=== PATIENT | female | born 1935 | race Caucasian/White ===

== ENCOUNTER 2018-03-07 13:19 | Emergency (ER) | payer MEDICARE ==
--- NOTE | 2018-03-07 14:32 | UC ---
Knee Pain HPI - HPI Summary HPI Summary: 82 yo female with right medial knee pain x 3 days knee buckled Had been doing a lot of work around the house - History of Current Complaint Chief Complaint: UCLowerExtremity Stated Complaint: LEG PAIN Time Seen by Provider: 03/07/18 14:18 Pain Intensity: 4 - Allergies/Home Medications Allergies/Adverse Reactions: Allergies Allergy/AdvReac Type Severity Reaction Status Date / Time No Known Allergies Allergy Verified 03/07/18 13:52 Home Medications: Home Medications Alendronate Sodium 70 mg PO WEEKLY 03/07/18 [History Confirmed 03/07/18] Atorvastatin* [Lipitor*] 40 mg PO QPM 03/07/18 [History Confirmed 03/07/18] Bisoprolol Fumarate 10 mg PO DAILY 03/07/18 [History Confirmed 03/07/18] Lisinopril TAB* [Prinivil TAB*] 20 mg PO DAILY 03/07/18 [History Confirmed 03/07] Spironolactone TAB* [Aldactone TAB*] 25 mg PO DAILY 03/07/18 [History Confirmed 03/07/18] Torsemide TAB* [Demadex*] 10 mg PO DAILY 03/07/18 [History Confirmed 03/07/18] Warfarin TAB(*) [Coumadin TAB(*)] 5 mg PO 1700 03/07/18 [History Confirmed 03/07] metFORMIN* [Glucophage 500 MG TAB *] 500 mg PO DAILY 03/07/18 [History Confirmed 03/07/18] PMH/Surg Hx/FS Hx/Imm Hx Previously Healthy: Yes Endocrine History: Diabetes, Dyslipidemia Cardiovascular History: Hypertension, Congestive Heart Failure, Atrial Fibrillation - Surgical History Surgical History: Yes Surgery Procedure, Year, and Place: bilat. varicose vein. cholestyectomy. appendentomy. tubal ligation - Social History Alcohol Use: None Substance Use Type: None Smoking Status (MU): Never Smoked Tobacco Review of Systems Constitutional: Negative Skin: Negative Eyes: Negative ENT: Negative Respiratory: Negative Cardiovascular: Negative Gastrointestinal: Negative Genitourinary: Negative Motor: Negative Neurovascular: Negative Musculoskeletal: Arthralgia Neurological: Negative Psychological: Negative All Other Systems Reviewed And Are Negative: Yes Physical Exam Triage Information Reviewed: Yes Appearance: Well-Appearing, No Pain Distress, Well-Nourished Vital Signs: Initial Vital Signs Temp 99.5 F 03/07/18 13:57 Pulse 92 03/07/18 13:57 Resp 16 03/07/18 13:57 BP 157/65 03/07/18 13:57 Pulse Ox 99 03/07/18 13:57 Eyes: Positive: Conjunctiva Clear ENT: Positive: Hearing grossly normal. Negative: Nasal congestion, Nasal drainage, Muffled voice, Hoarse voice Neck: Positive: Supple, Nontender, No Lymphadenopathy Respiratory: Positive: Lungs clear, Normal breath sounds, No respiratory distress, No accessory muscle use Cardiovascular: Positive: RRR, No Murmur Musculoskeletal: Positive: Other: - right knee: tender medial joint line,? small ; effusion, stable to valgus and varus, neg ant drawer....gait not observed Neurological: Positive: Alert Psychological Exam: Normal Skin Exam: Normal Diagnostics - Radiology No standard instances Xray Interpretation: No Acute Changes Radiology Interpretation Completed By: Radiologist Knee Pain Course/Dx - Differential Dx/Diagnosis Provider Diagnoses: right knee injury. suspect torn medial meniscus Discharge - Sign-Out/Discharge Documenting (check all that apply): Patient Departure All imaging exams completed and their final reports reviewed: Yes - Discharge Plan Condition: Stable Disposition: HOME Patient Education Materials: Knee Immobilizer (ED), Meniscus Tear (ED) Referrals: Darshan Vogt MD [Medical Doctor] - As Soon As Possible Additional Instructions: you may have torn your medial meniscus tylenol ice knee immobilizer/walker - Billing Disposition and Condition Condition: STABLE Disposition: Home
--- NOTE | 2018-03-07 15:01 | RAD ---
Indication: RIGHT knee instability. Injury with minor swelling and anterior and lateral pain. Comparison: None. Technique: RIGHT knee: AP, tunnel, lateral, sunrise views. REPORT AND IMPRESSION: #. Negative for joint effusion, fracture, or malalignment. #. Mild osteoarthritis with mild osteophytosis. Negative for significant joint space narrowing. Chondrocalcinosis at the lateral meniscus. #. Soft tissue swelling most prominent along the medial aspect at the dermal and subcutaneous tissue planes.
== END 2018-03-07 15:35 | disposition home or self-care (01) ==
LOC: UCEAST 13:19
DX: S89.91XA Unspecified injury of right lower leg, initial encounter (principal); X58.XXXA Exposure to other specified factors, initial encounter; Y92.9 Unspecified place or not applicable; E11.9 Type 2 diabetes mellitus without complications; E78.5 Hyperlipidemia, unspecified; I10 Essential (primary) hypertension; I50.9 Heart failure, unspecified; I48.91 Unspecified atrial fibrillation
CPT/HCPCS: 99202; G0463

== ENCOUNTER 2018-08-15 12:29 | Emergency (ER) | payer MEDICARE ==
[2018-08-15 12:50] VITALS: BP 176/88
--- NOTE | 2018-08-15 13:01 | UC ---
Cardiac HPI - HPI Summary HPI Summary: ONSET OF HEAVY MIDSTERNAL CHEST PAIN YESTERDAY MORNING WHILE WALKING AROUND DOING HER HOUSEHOLD ACTIVITIES. IT LASTED FOR A FEW HOURS THEN RESOLVED SPONTANEOUSLY. SHE WAS WELL FOR THE REST OF THE DAY BUT THEN WOKE UP AGAIN THIS MORNING WITH THE SAME CHEST PAIN. SHE DENIES FEVER, NAUSEA, SWEATS, SHORTNESS OF BREATH. HAS A HISTORY OF ATRIAL FIBRILLATION ON ELIQUIS WELL DIABETES, HYPERTENSION, HYPERLIPIDEMIA AND POSSIBLE HEART FAILURE. CALLED HER PCP OFFICE AND WAS ADVISED TO COME TO THE UC/ED. - History of Current Complaint Chief Complaint: UCChestPain Stated Complaint: CHEST PAIN Time Seen by Provider: 08/15/18 12:30 Hx Obtained From: Patient, Family/Flight Control Manager - Onset/Duration: Sudden Onset, Still Present Initial Severity: Moderate Current Severity: Moderate Pain Intensity: 5 Chest Pain Location: Mid Sternal Character: Heaviness Aggravating Factor(s): Nothing Alleviating Factor(s): Nothing Associated Signs & Symptoms: Positive: Chest Pain. Negative: Vision Changes, Numbness, Tingling, Weakness, Dizziness, SOB, Syncope, Fever, Diaphoresis, Nausea/Vomiting, Cough - Allergy/Home Medications Allergies/Adverse Reactions: Allergies Allergy/AdvReac Type Severity Reaction Status Date / Time No Known Allergies Allergy Verified 08/15/18 12:50 PMH/Surg Hx/FS Hx/Imm Hx Endocrine History: Diabetes, Dyslipidemia Cardiovascular History: Hypertension, Congestive Heart Failure, Atrial Fibrillation - Surgical History Surgical History: Yes Surgery Procedure, Year, and Place: bilat. varicose vein. cholestyectomy. appendentomy. tubal ligation - Family History Known Family History: Positive: Hypertension - Social History Alcohol Use: None Substance Use Type: None Smoking Status (MU): Never Smoked Tobacco Review of Systems All Other Systems Reviewed And Are Negative: Yes Constitutional: Positive: Negative Respiratory: Positive: Negative Cardiovascular: Positive: Chest Pain Gastrointestinal: Positive: Negative Physical Exam Triage Information Reviewed: Yes Appearance: Well-Appearing, No Pain Distress, Well-Nourished Vital Signs: Initial Vital Signs Temp 98.7 F 08/15/18 12:47 Pulse 93 08/15/18 12:47 Resp 18 08/15/18 12:47 BP 176/88 08/15/18 12:47 Pulse Ox 97 08/15/18 12:47 Vital Signs Reviewed: Yes Eyes: Positive: Conjunctiva Clear ENT: Positive: Hearing grossly normal Neck: Positive: Supple Respiratory: Positive: No respiratory distress, No accessory muscle use, Crackles - RIGHT LUNG BASE Cardiovascular: Positive: Other: - IRREGULARLY IRREGULAR Abdomen Description: Positive: Soft Musculoskeletal: Positive: No Edema Neurological: Positive: Alert Psychological: Positive: Age Appropriate Behavior Skin: Negative: Rashes Diagnostics - EKG Cardiac Rate: NL - 80BPM Cardiac Rhythm: AFib: Old Ectopy: PVCs ST Segment: Normal - Assessment/Plan Course Of Treatment: PT OFFERED TRANSPORT TO THE ED BY AMBULANCE BUT DECLINES. ADVISED THAT BY NOT TRAVELING IN A MONITORED SETTING SHE COULD BE RISKING WORSENING OF HER CONDITION THAT COULD POSE A THREAT TO HER LIFE, HEALTH AND MEDICAL SAFETY. SHE VERBALIZES UNDERSTANDING AND CONTINUES TO DECLINE AMBULANCE TRANSFER. - Clinical Impression Provider Diagnosis: Chest pain Discharge - Sign-Out/Discharge Documenting (check all that apply): Patient Departure All imaging exams completed and their final reports reviewed: No Studies - Discharge Plan Condition: Stable Disposition: TRANS HIGHER LVL OF CARE FAC Patient Education Materials: Chest Pain (ED) Referrals: Francheska Iglesias MD [Primary Care Provider] - If Needed Additional Instructions: GO DIRECTLY TO THE [facility] [place] ED FROM HERE FOR FURTHER EVALUATION. YOU HAVE DECLINED TRANSFER TO THE ED BY AMBULANCE. BE ADVISED THAT BY NOT TRAVELING IN A MONITORED SETTING YOU COULD BE RISKING WORSENING OF YOUR CONDITION THAT COULD POSE A THREAT TO YOUR LIFE, HEALTH AND MEDICAL SAFETY. - Billing Disposition and Condition Condition: STABLE Disposition: Trans Higher Lvl of Care Fac
== END 2018-08-15 13:02 | disposition short-term general hospital (02) ==
LOC: UCEAST 12:29
DX: R07.89 Other chest pain (principal); I11.0 Hypertensive heart disease with heart failure; I50.9 Heart failure, unspecified; E11.9 Type 2 diabetes mellitus without complications
CPT/HCPCS: 93005; 99212; G0463

== ENCOUNTER 2018-08-15 13:20 | Emergency (ER) | payer MEDICARE ==
--- NOTE | 2018-08-15 13:38 | ED ---
HPI Chest Pain - HPI Summary HPI Summary: Patient is a 82 y/o F presenting to ED with complaints of chest pain that she characterizes as a pressure. Pain is noted to be at right side of chest. She states that she had an episode of chest pain yesterday, which resolved by itself. This morning, chest pain onset once more. She notes that she was doing housework both times chest pain onset. Patient reports having experienced dizziness with chest pain yesterday, no dizziness with today's episode. Patient denies SOB, N/V, diaphoresis, edema. No similar previous episodes of chest pain , no radiation of pain. No Hx of ND, but notes PMHx of afib. She states that she "has pulmonary" but does not know any further details. 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 Patient is on Eliquis. She notes some cough "every once in a great while" as well. In room, she rates chest pain 5/10. Nothing is noted to aggravate/alleviate Sx. Home medications and allergies are reviewed. - History of Current Complaint Time Seen by Provider: 08/15/18 13:25 Hx Obtained From: Patient Onset/Duration: Started Days Ago - first episode onset yesterday, Still Present Timing: Intermittent - two episodes reported Current Severity: Moderate Pain Intensity: 5 Pain Scale Used: 0-10 Numeric - 5/10 Chest Pain Location: Right Anterior Chest Pain Radiates: No Character: Pressure/Squeezing Aggravating Factor(s): Nothing Alleviating Factor(s): Nothing Associated Signs and Symptoms: Positive: Chest Pain, Dizziness, Cough - "every once in a great while". Negative: Shortness of Breath, Swelling, Diaphoresis, Nausea, Calf Pain/Swelling, Vomiting - Allergy/Home Medications Allergies/Adverse Reactions: Allergies Allergy/AdvReac Type Severity Reaction Status Date / Time No Known Allergies Allergy Verified 08/15/18 12:50 Home Medications: Home Medications Apixaban* [Eliquis*] 5 mg PO BID 08/15/18 [History Confirmed 08/15/18] Calcium Carbonate/Vitamin D3 [Calcium 600 + Vit D Tablet] 1 each PO DAILY [History Confirmed 08/15/18] PMH/Surg Hx/FS Hx/Imm Hx Endocrine/Hematology History: Reports: Hx Diabetes Cardiovascular History: Reports: Hx Atrial Fibrillation, Hx Hypertension Denies: Hx Myocardial Infarction Sensory History: Denies: Hx Legally Blind, Hx Deafness Opthamlomology History: Denies: Hx Legally Blind EENT History: Denies: Hx Deafness - Surgical History Surgery Procedure, Year, and Place: bilat. varicose vein. cholestyectomy. appendentomy. tubal ligation - Family History Known Family History: Positive: Hypertension - Social History Alcohol Use: None Substance Use Type: Reports: None Smoking Status (MU): Never Smoked Tobacco Review of Systems Negative: Skin Diaphoresis Positive: Chest Pain Positive: Cough - "every once in a great while". Negative: Shortness Of Breath Negative: Vomiting, Nausea Negative: Edema Neurological: Other - POSITIE - DIZZINESS All Other Systems Reviewed And Are Negative: Yes Physical Exam - Summary Physical Exam Summary: VITAL SIGNS: Reviewed. GENERAL: Patient is a well-developed and nourished female who is lying comfortable in the stretcher. Patient is not in any acute respiratory distress. HEAD AND FACE: No signs of trauma. No ecchymosis, hematomas or skull depressions. No sinus tenderness. EYES: PERRLA, EOMI x 2, No injected conjunctiva, no nystagmus. EARS: Hearing grossly intact. Ear canals and tympanic membranes are within normal limits. MOUTH: Oropharynx within normal limits. NECK: Supple, trachea is midline, no adenopathy, no JVD, no carotid bruit, no c- spine tenderness, neck with full ROM. CHEST: Symmetric, no tenderness at palpation LUNGS: Clear to auscultation bilaterally. No wheezing or crackles. CVS: irregularly irregular, S1 and S2 present, no murmurs or gallops appreciated. ABDOMEN: Soft, non-tender. No signs of distention. No rebound no guarding, and no masses palpated. Bowel sounds are normal. EXTREMITIES: FROM in all major joints, no edema, no cyanosis or clubbing. NEURO: Alert and oriented x 3. No acute neurological deficits. Speech is normal and follows commands. SKIN: Dry and warm Triage Information Reviewed: Yes Vital Signs On Initial Exam: Initial Vitals Temp Pulse Resp BP Pulse Ox 99.0 F 92 20 194/101 98 08/15/18 13:23 08/15/18 13:23 08/15/18 13:23 08/15/18 13:23 08/15/18 13:23 Vital Signs Reviewed: Yes Diagnostics - Laboratory Result Diagrams: 08/15/18 12:52 08/15/18 12:52 Lab Statement: Any lab studies that have been ordered have been reviewed, and results considered in the medical decision making process. - Radiology CXR Radiology Interpretation Completed By: Radiologist Summary of Radiographic Findings: IMPRESSION: NO EVIDENCE FOR ACUTE DISEASE. THIS REPORT WAS REVIEWED BY ED PHYSICIAN. - EKG 1323 Cardiac Rate: Other Rate - afib with rate of 87 BPM EKG Rhythm: Atrial Fibrillation Ectopy: PVCs EKG Comparison: No Significant Change - compared to EKG taken earlier today at 08/15/18 1229 Summary of EKG Findings: EKG showed afib with rate of 87 BPM, no ST elevation, PVCs, no significant change compared to EKG taken earlier today on 08/15/18 at 1229. Re-Evaluation - Re-Evaluation First Eval Re-Evaluation Time: 17:25 Comment: I discussed all the findings and test results with the patient. Patient was instructed to return to the emergency room immediately if any of the symptoms return or worsens. Plan of care was discussed with the patient and understands and agrees. All questions were answered at patient satisfaction. There were no further complaints or concerns. Lung exam before discharge: CTA B/ L. Good air exchange. No wheezing or crackles heard. CVS: S1 and S2 present. No murmurs appreciated. Patient is alert and oriented x 3. Patient is hemodynamically stable. Patient will be discharged home with follow up PCP in the next 2-3 days Chest Pain Course/Dx - Course Assessment/Plan: Patient is a 82 y/o F presenting to ED with complaints of chest pain that she characterizes as a pressure. Pain is noted to be at right side of chest. She states that she had an episode of chest pain yesterday, which resolved by itself. This morning, chest pain onset once more. She notes that she was doing housework both times chest pain onset. Patient reports having experienced dizziness with chest pain yesterday, no dizziness with today' s episode. Patient denies SOB, N/V, diaphoresis, edema. No similar previous episodes of chest pain, no radiation of pain. No Hx of ND, but notes PMHx of afib. She states that she "has pulmonary" but does not know any further details. Dr. Mcclintic is reported to be shaker screen operator. Patient is on Eliquis. She notes some cough "every once in a great while" as well. In room, she rates chest pain 5/10. Nothing is noted to aggravate/alleviate Sx. Home medications and allergies are reviewed. Blood work without any significant abnormality, except for sodium 130, creatinine 1.05, glucose 125, calcium is 10.8 and BNP 261. The troponin 0.00. EKG shows atrial fibrillation without any ST elevations. Chest x-ray impression: no evidence for acute disease. Second troponin for this patient was 0.00. The patient had a right-sided chest pain therefore I do not believe that the patient has an acute coronary syndrome. I also believe that the patient is not having a pulmonary embolism since the patient is not hypoxic or tachycardic. I discussed all the findings and test results with the patient. Patient was instructed to return to the emergency room immediately if any of the symptoms return or worsens. Plan of care was discussed with the patient and understands and agrees. All questions were answered at patient satisfaction. There were no further complaints or concerns. Lung exam before discharge: CTA B/L. Good air exchange. No wheezing or crackles heard. CVS: S1 and S2 present. No murmurs appreciated. Patient is alert and oriented x 3. Patient is hemodynamically stable. Patient will be discharged home with follow up PCP in the next 2-3 days. - Chest Pain Differential Diagnosis/HQI/PQRI: Acute ND, ACS, Angina, CHF, Chest Wall, GI Disease, Lower Respiratory Infection - Diagnoses Provider Diagnoses: Atypical chest pain Discharge - Sign-Out/Discharge Documenting (check all that apply): Patient Departure - discharge Patient Received Moderate/Deep Sedation with Procedure: No - NO PROCEDURES DONE - Discharge Plan Condition: Stable Disposition: HOME Patient Education Materials: Chest Pain (ED) Referrals: Francheska Iglesias MD [Primary Care Provider] - 3 Days Additional Instructions: RETURN TO EMERGENCY DEPARTMENT FOR ANY NEW OR WORSENING SYMPTOMS. FOLLOW UP WITH PRIMARY CARE PHYSICIAN WITHIN THREE DAYS. - Billing Disposition and Condition Condition: STABLE Disposition: Home - Attestation Statements Document Initiated by Scribe: Yes Documenting Scribe: JESSICA CASTRO Provider For Whom Scribe is Documenting (Include Credential): BRETT MORA MD Scribe Attestation: IJESSICA , scribed for BRETT MORA MD on 08/16/18 at 1112. Scribe Documentation Reviewed: Yes Provider Attestation: The documentation as recorded by the scribe, JESSICA CASTRO accurately reflects the service I personally performed and the decisions made by me, BRETT MORA MD Status of Scribe Document: Viewed
[2018-08-15 13:59] LABS: ABS Basophils 0 10^3/ul (0-0.2); ABS Eosinophils 0.1 10^3/ul (0-0.6); ABS Lymphocytes 1.4 10^3/ul (1.0-4.8); ABS Monocytes 0.6 10^3/ul (0-0.8); ABS Neutrophils 4.2 10^3/ul (1.5-7.7); ABS Nucleated RBC 0 10^3/ul; Eosinophil % 0.9 %; Hematocrit 37 % (35-47); Hemoglobin 12.5 g/dl (12.0-16.0); Lymphocyte % 22.8 %; Mean Corpuscular HGB Conc 34 g/dl (31-36); Mean Corpuscular Hemoglobin 30 pg (27-31); Mean Corpuscular Volume 90 fL (80-97); Mean Platelet Volume 7.4 fL (7.4-10.4); Nucleated Red Blood Cells % 0; Platelet Count 252 10^3/ul (150-450); Red Blood Count 4.16 10^6/ul (4.00-5.40); Red Cell Distribution Width 14 % (10.5-15); White Blood Count 6.3 10^3/ul (3.5-10.8)
[2018-08-15 14:04] LABS: Activated Partial Thrombo Time 34.4 seconds (26.0-36.3); INR 1.51 (0.77-1.02)
[2018-08-15 14:24] LABS: Albumin 4.9 g/dL (3.2-5.2); Albumin/Globulin Ratio 1.6 (1-3); BUN/Creatinine Ratio 12.4 (8-20); Calcium 10.8 mg/dL (8.6-10.3); EGFR African American 60.9 (>60); EGFR Non-African American 50.3 (>60); Potassium 4.4 mmol/L (3.5-5.0); Total Bilirubin 0.9 mg/dL (0.2-1.0); Total Protein 7.9 g/dL (6.4-8.9)
[2018-08-15 14:26] LABS: CKMB ng/mL 2.9 ng/mL (0.6-6.3)
[2018-08-15 14:58] LABS: TSH (Thyroid Stimulating Horm) 4.92 mcIU/mL (0.34-5.60)
[2018-08-15 15:25] LABS: Urine Appearance Cloudy; Urine Bilirubin Negative (Negative); Urine Blood Negative (Negative); Urine Color Yellow; Urine Glucose Negative (Negative); Urine Ketones Negative (Negative); Urine Nitrite Negative (Negative); Urine Protein Negative (Negative); Urine Specific Gravity 1.005 (1.010-1.030); Urine Urobilinogen Negative (Negative)
[2018-08-15 18:14] VITALS: BP 158/95
== END 2018-08-15 18:14 | disposition home or self-care (01) ==
LOC: ED 13:20
DX: R07.89 Other chest pain (principal); R42 Dizziness and giddiness; R05 Cough; I48.91 Unspecified atrial fibrillation; I11.0 Hypertensive heart disease with heart failure; I50.9 Heart failure, unspecified; E11.9 Type 2 diabetes mellitus without complications
CPT/HCPCS: 36415; 71045; 80053; 81003; 82550; 82553; 83605; 83735; 83880; 84443; 84484; 85025; 85610; 85730; 93005; 99283